=== PATIENT | male | born 1985 | race Caucasian/White ===

== ENCOUNTER 2019-04-08 06:18 | Day surgery (SDC) | payer OTHER ==
[2019-04-03 08:59] LABS: Urine WBC None Seen /hpf (0 - 3)
[2019-04-03 09:11] LABS: Urine Bacteria FEW /hpf (None Seen); Urine Blood Negative /uL (Negative); Urine Specific Gravity 1.026 (1.001-1.035)
[2019-04-03 09:25] LABS: Potassium 4.2 mmol/L (3.5-5.1)
[2019-04-03 09:30] LABS: Basophils # (auto) 0.1 uL; Eosinophils # (auto) 0.2 uL; Eosinophils % (auto) 4.9 % (0.0-7.0); Hematocrit 44.4 % (41.0-53.0); Lymphocytes # (auto) 1.7 uL; Lymphocytes % (auto) 34.7 % (10.0-50.0); Mean Corpuscular Hemoglobin 30.4 pg (28.0-32.0); Mean Corpuscular Hgb Conc. 33.8 g/dL (32.0-36.0); Mean Corpuscular Volume 90.1 fL (80.0-100.0); Monocytes # (auto) 0.5 uL; Monocytes % (auto) 9.3 % (0.0-12.0); Neutrophils # (auto) 2.5 uL; Neutrophils % (auto) 49.1 % (37.0-80.0); Nucleated Red Blood Cells % 0.1 %; Platelet Count (auto) 214 10^3/uL (140-450); Red Blood Cells 4.93 10^6/uL (4.5-5.90); Red Cell Distribution Width 13.2 % (11.8-14.3)
[2019-04-03 09:31] LABS: Albumin 4.1 g/dL (3.4-5.0); BUN/Creatinine Ratio 13.2; Bilirubin, Total 0.7 mg/dL (0.2-1.0); Calcium 8.6 mg/dL (8.5-10.1); Total Protein 7.5 g/dL (6.4-8.2)
[2019-04-03 09:33] LABS: INR 1.03 (0.9-1.15); Partial Thromboplastin Time 27.6 sec (23.64-32.05)
[~2019-04-08] VITALS: Ht 188 cm; Wt 120.2 kg
[2019-04-08] MEDS ORDERED: ceFAZolin 1GM/50ML 50 ML IV ONE (06:36)
[2019-04-08] MEDS ORDERED: GLYCOPYRROLATE 0.2 MG/ML 1ML VIAL IV ONE (07:35)
[2019-04-08] MEDS ORDERED: KETOROLAC TROMETH 30 MG/ML 1ML VIAL IV ONE (07:35)
[2019-04-08] MEDS ORDERED: NEOSTIGMINE 1 MG/ML INJ (10mg/10ML VIAL) IV ONE (07:35)
[2019-04-08] MEDS ORDERED: ROCURONIUM 10MG/ML 10ML VIAL IV ONE (07:41)
[2019-04-08] MEDS ORDERED: MIDAZOLAM HCL 1MG/1ML-2 ML VIAL ONE (07:41)
[2019-04-08] MEDS ORDERED: PROPOFOL 10 MG/ML 20 ML IV ONE (07:41)
[2019-04-08] MEDS ORDERED: fentaNYL CITRATE 5 ML ONE (07:41)
[2019-04-08] MEDS ORDERED: BUPIVACAINE 0.25% INJ 50ML VIAL ONE (08:08)
[2019-04-08] MEDS ORDERED: HYDROmorphone HCL 2 MG/ML VL IV PRN (09:30)
[2019-04-08] MEDS ORDERED: hydrALAZINE HCL 20 MG/ML VL IV PRN (09:30)
[2019-04-08] MEDS ORDERED: ePHEDrine SULFATE 50 MG/ML AMP IV PRN (09:30)
[2019-04-08] MEDS ORDERED: ONDANSETRON HCL 4 MG/2 ML VIAL IV PRN (09:30)
[2019-04-08] MEDS: HYDROmorphone HCL 2 MG/ML VL IV PRN ×4 (09:50→10:25)
[2019-04-08 10:24] VITALS: BP 134/58
== END 2019-04-08 10:33 | disposition home or self-care (01) ==
LOC: SUR 06:18
PROVIDERS: ATTEND Orthopaedic Surgery
DX: M75.122 Complete rotator cuff tear or rupture of left shoulder, not specified as traumatic (principal); M75.02 Adhesive capsulitis of left shoulder; M25.812 Other specified joint disorders, left shoulder; M75.22 Bicipital tendinitis, left shoulder; M75.52 Bursitis of left shoulder; Z98.890 Other specified postprocedural states; Z79.899 Other long term (current) drug therapy; Z91.018 Allergy to other foods
CPT/HCPCS: 23076; 23412; 23415; 36415; 80053; 81001; 85025; 85610; 85730; 88304; J0690; J1170; J1885; J2250; J2704; J3010; J3490